=== PATIENT | female | born 1995 | race Caucasian/White ===

== ENCOUNTER 2016-05-02 08:11 | Emergency (ER) | payer OTHER ==
[~2016-05-02] VITALS: Ht 152.4 cm; Wt 75.0 kg
[~2016-05-02 08:11] MED LIST: ESCI10TA52 PO
[2016-05-02 08:15] VITALS: BP 120/78; PULSE 108; RESP 14; O2SAT 96
--- NOTE | 2016-05-02 08:52 | ED.REPORT ---
HPI-NVD Date of Service May 02, 2016 ED Provider: The patient is a 20 year old female with history of asthma, anxiety, and depression, who presents to the emergency department complaining of abdominal pain that has been ongoing over the last 2 months. She initially noticed mucousy /bloody stool and diarrhea. This has continued and she has also experienced intermittent episodes of nausea and vomiting. Over the last few days her symptoms have worsened and she has noticed chills. She is having about 10-15 episodes of diarrhea per day and wakes from sleep to have a bowel movement. She notices blood in her stools everyday, usually towards the end of the day. She has lost about 10 pound since onset. She has tried Pepto Bismol with no relief. She was seen by her doctor yesterday who was concerned that she was dehydrated. She has not had any stool studies since this started. Her mother mentions that the patient had similar mucousy stools when she was a few years ago. The patient denies any chance she is . A few weeks ago she had a cold and experienced a fever during that time but no other times over the last 2 months. She was on antibiotics for the cold for about 4-5 days. She smokes tobacco. She drinks alcohol about once per month. She does not use any illicit drugs. No previous abdominal surgeries. Nursing Notes Stated Complaint: POSSIBLE DEHYDRATION Chief Complaint: Female Abdominal Pain Nursing Notes Reviewed: Yes Allergies: Coded Allergies: codeine (Verified Allergy, Unknown, Nausea, 08/26/15) Scheduled Escitalopram Oxalate (Escitalopram Oxalate) 10 Mg Tablet 10 MG PO DAILY General Time Seen by MD: 08:51 Chief Complaint Abd pain, cramping Hx Obtained From: Patient Arrived By: Walk-in Onset Occurred: More than a week ago... (2 months) Symptom Duration: Intermittent Diarrhea: Diarrhea with mucous, Diarrhea > 10 episodes (per day) Location: : Diffuse Quality: Cramping, Painful Severity: Current: Moderate Severity: Maximum: Severe Pertinent Negative: Pt denies other symptoms Recent Healthcare: No recent hospitalization, Recent doctor visit Similar Sx Previous: Yes (for the last 2 months) Past Medical History Past Medical History 1. Asthma. 2. Psoriasis. 3. Depression 4. Anxiety Past Surgical History None. Family History Noncontributory Smoking History Current Every Day Smoker Social History The patient lives with her father. Her parents are . She has a 2 year old daughter. Alcohol Use: "Social" (once per month) Drug Use: Denies drug use Other Social History: Good social support, Lives with parents, Lives with children, Local resident Ambulatory Status Independent Review of Systems Review of Systems Note: +bloody stools Constitutional: Reports: Chills, Recent wt loss, Denies: Fever GI: Reports: Abdominal pain, Anorexia, Diarrhea, Mucousy stool, Nausea, Vomiting Complete sys rev & neg: except as marked. Respiratory: Denies: Non-productive cough, Shortness of breath Cardiovascular: Denies: Chest pain Female: Denies: Physical Exam Initial Vital Signs Vital Signs (First) Date Time Temp Pulse Resp B/P Pulse Ox O2 Delivery O2 Flow Rate FiO2 05/02/16 08:15 35.6 108 14 120/78 96 Room Air Initial VS: Reviewed Head / Eyes: Atraumatic, Normocephalic, PERRL ENT: Mucous membranes moist, Conjunctiva normal, No scleral icterus Neck: Supple, Non-tender, Full range of motion Respiratory: Breath sounds normal, Clear to auscultation, No respiratory distress Cardiovascular: Regular rate & rhythm, Heart sounds normal, Intact distal pulses Back: No CVA tenderness Lymphatic: No lymphadenopathy Extremities: Vascular intact, Neuro intact, No swelling, No tenderness Skin: Warm, Dry, No cyanosis Neurologic: Alert, Oriented, Nonfocal Psychiatric: Mood/affect normal, Behavior normal, Normal thought content General/Constitutional: Awake, Alert, No acute distress, Cooperative Abdomen: Soft, No guarding, No rebound, BS normoactive, No distention, No hernia, No palpable mass, No pulsatile mass Diffuse abdominal pain with no guarding or mass. The worst spot is in the hypogastrium. Interpretation & Diagnostics Lab Results Interpretation Result Diagram: 05/02/16 0858 05/02/16 0858 Test 05/02/16 08:58 05/02/16 09:38 White Blood Count 11.5th/mm3 (3.8-10.1) Red Blood Count 4.88mil/mm3 (3.90-5.20) Hemoglobin 14.2g/dL (12.0-15.6) Hematocrit 41.5% (35.0-46.0) Mean Corpuscular Volume 85.0fL (81-100) Mean Corpuscular Hemoglobin 29.1pg (27.0-35.0) Mean Corpuscular Hemoglobin Concent 34.2% (32.0-37.0) Red Cell Distribution Width 13.8% (12.3-15.4) Platelet Count 208bil/L (150-400) Neutrophils (%) (Auto) 64.8% (40-74) Lymphocytes (%) (Auto) 17.8% (14-46) Monocytes (%) (Auto) 12.0% (4-12) Eosinophils (%) (Auto) 4.6% (0-5) Basophils (%) (Auto) 0.5% (0-3) Sodium Level 138mEq/L (134-144) Potassium Level 3.5mEq/L (3.5-5.2) Chloride Level 101mEq/L (97-108) Carbon Dioxide Level 23mmol/L (18-29) Blood Urea Nitrogen 6mg/dL (6-20) Creatinine 0.59mg/dL (0.57-1.00) Estimat Glomerular Filtration Rate 184mL/min (>59) Glucose Level 83mg/dL (60-99) Calcium Level 8.7mg/dL (8.5-10.1) Magnesium Level 2.0mg/dL (1.6-2.6) Total Bilirubin 0.4mg/dL (0.0-1.2) Aspartate Amino Transf (AST/SGOT) 23U/L (0-50) Alanine Aminotransferase (ALT/SGPT) 11U/L (0-32) Alkaline Phosphatase 46U/L (25-150) Total Protein 7.5g/dL (6.4-8.4) Albumin 4.0g/dL (3.4-5.0) Lipase 20U/L (13-60) Hold Lin Top Tube Received (Received) Urine Color Yellow (YELLOW) Urine Appearance Hazy (CLEAR,HAZY) Urine pH 7.0 (5.0-8.0) Urine Specific [place] 1.010 (1.003-1.035) Urine Protein Negativemg/dL (NEG,TRACE) Urine Glucose (UA) Negativemg/dL (NEGATIVE) Urine Ketones 15mg/dL (NEGATIVE) Urine Occult Blood Moderate (NEGATIVE) Urine Nitrite Negative (NEGATIVE) Urine Bilirubin Negative (NEGATIVE) Urine Urobilinogen Normalmg/dL (NORMAL) Urine Leukocyte Esterase Large (NEGATIVE) Urine RBC 0-2/hpf (0-2) Urine WBC 11-50/hpf (0-5) Urine Epithelial Cells Occasional/hpf (NONE-MOD) Urine Crystals None seen (NONE SEEN) Urine Bacteria Many/hpf (NONE-FEW) Urine Hyaline Casts None/lpf (NONE) Urine Granular Casts None seen (NONE SEEN) Urine Waxy Casts None seen (NONE SEEN) Urine Red Blood Cell Casts None seen (NONE SEEN) Urine White Blood Cell Casts None seen (NONE SEEN) Urine Mucus None seen (None Seen) Urine Trichomonas None seen (NONE SEEN) Urine Yeast None (NONE SEEN) Urinalysis Comment None Urine Culture Reflexed Indicated X-Ray Abdominal Interpretation IMPRESSION: 1. Probable bilateral renal stones. 2. Paucity of bowel gas. Dilated, fluid-filled loops of bowel cannot be excluded. Dictated by: Kati Perea MD, PhD on 05/02/2016 at 9:57 Interpretation / Wet Read by: Interpret - Radiologist Re-Eval/Medical Decision Source of Hx: Old records, Family Re-Evaluation/Progress #1: Time of Eval: 09:07 Re-Evaluation/Progress Note: Discussed plan for workup. Re-Evaluation/Progress #2: Time of Eval: 11:00 Re-Evaluation/Progress Note: Rechecked the patient. She is resting comfortably. She has not had any diarrhea since the Imodium. Still awaiting stool culture results. Re-Evaluation/Progress #3: Re-Evaluation/Progress Note: Discussed results, diagnosis, and plan for discharge. All questions were addressed. Counseled Regarding: Diagnosis, Lab results, Need for follow-up, When/why to return to ED Discharge & Departure Impression: Primary Impression: Chronic diarrhea Disposition: Home Discharge Condition All VS Reviewed: Yes Condition: Stable Patient Instructions: Chronic Diarrhea (ED) Additional Instructions: Thank you for entrusting us with your care today. We have scheduled you an appointment with Khloe Mcgrath PA-C on SaturdayMay 09 with a check-in time of 7:45 AM. I recommend trying over the counter Imodium (loperamide). Take 2 the first time. Then every time you have an episode of diarrhea you can take another one. Do not take more than 8 in 24 hours. If this does not help after a few days you can stop taking it. Drink fluids as tolerated. Use ondansetron as needed for nausea and Tylenol as needed for pain. Please return to the emergency department if you develop increased abdominal pain, uncontrollable vomiting, fever, chills, lightheadedness, dizziness, or any other new or concerning symptoms. Referrals: Chava Cheng MD (PCP) Khloe Mcgrath PA-C Other Scribe Attestation Portions of this note were transcribed by Sudha Salinas. I, Dr. Aponte personally performed the history, physical exam and medical decision-making; I reviewed and confirmed the accuracy of the information in the transcribed note. Signed by: Emerson Amaya, 05/02/3016 and 1200. copies to: Chava Cheng MD; Khloe Mcgrath PA-C, Kirk H MD May 02, 2016 08:52 Sudha Salinas May 02, 2016 09:08
[2016-05-02] MEDS ORDERED: 0.9% Sodium Chloride 1,000 ML IV ONE ×2 (09:06→09:10)
[2016-05-02] MEDS ORDERED: Ondansetron 2 mg/mL 2 mL Inj IVPUSH PRN (09:10)
[2016-05-02] MEDS ORDERED: Acetaminophen IV 1,000 MG in IV Premix 1 EACH IV ONE (09:10)
[2016-05-02 09:18] LABS: BASOPHILS % (AUTO) 0.5 % (0-3); EOSINOPHILS % (AUTO) 4.6 % (0-5); Mean Corpuscular Hemoglobin 29.1 pg (27.0-35.0); NEUTROPHILS % (AUTO) 64.8 % (40-74); Platelet Count 208 bil/L (150-400)
--- NOTE | 2016-05-02 10:00 | DRSVH ---
PROCEDURE: X-RAY ACUTE ABDOMINAL SERIES ([id number]) INDICATIONS: vomiting TECHNIQUE: One view chest and two views of the abdomen were acquired. COMPARISON: [facility], CR, XR ABDOMEN ACUTE SERIES, 04/12/2016, 6:52 PM. FINDINGS: Surgical changes and devices: None. Chest: Lungs are clear. Heart size is normal. No pleural effusions. No pneumoperitoneum. Abdomen: There is a near complete absence of gas in the large and small bowel loops. Gas is noted in the stomach. Calcific densities project over the inferior poles of the kidneys bilaterally. Visualize d solid organ contours appear normal. Bones: No suspicious bony lesions. IMPRESSION: 1. Probable bilateral renal stones. 2. Paucity of bowel gas. Dilated, fluid-filled loops of bowel cannot be excluded. Dictated by: Kati Perea MD, PhD on 05/02/2016 at 9:57 Approved by: Kati Perea MD, PhD on 05/02/2016 at 9:58
[2016-05-02 10:05] LABS: APPEARANCE,URINE HAZY (CLEAR,HAZY); COLOR,URINE YELLOW (YELLOW)
[2016-05-02 10:06] LABS: OCCULT BLOOD,URINE MODERATE (NEGATIVE); UROBILINOGEN,URINE NORMAL (NORMAL)
[2016-05-02] MEDS ORDERED: ONDA4TAB9 PO (12:13)
[2016-05-15] MEDS ORDERED: MOME13HF4 IH (15:16)
[2016-05-15] MEDS ORDERED: NITR100 PO (15:16)
[2016-05-15] MEDS ORDERED: ALBU2.5V4 INHALATION (15:16)
[2016-05-15] MEDS ORDERED: ALBU18HF INH (15:16)
== END 2016-05-02 12:20 | disposition home or self-care (01) ==
LOC: SED 08:11
DX: K52.9 Noninfective gastroenteritis and colitis, unspecified (principal); J45.909 Unspecified asthma, uncomplicated; F17.200 Nicotine dependence, unspecified, uncomplicated; Z88.5 Allergy status to narcotic agent
CPT/HCPCS: 36415; 74022; 80053; 81000; 81025; 83690; 83735; 85025; 87086; 87088; 87507; 96361; 96374; 96375; 99285; J0131; J2405; J7030

== ENCOUNTER 2016-05-16 07:18 | Day surgery (SDC) | payer OTHER ==
[~2016-05-16] VITALS: Ht 152.4 cm; Wt 72.6 kg
[~2016-05-16 07:18] MED LIST changes: +ALBU18HF INH; +ALBU2.5V4 INHALATION; +MOME13HF4 IH; +NITR100 PO; +ONDA4TAB9 PO; +Sodium Chloride LOK Flush 10 mL Syringe IV PRN; +fentaNYL-PF 50 mCg/mL 2 mL Inj IVPUSH PRN
[2016-05-16 07:51] VITALS: BP 111/71; PULSE 71; RESP 16; O2SAT 96
[2016-05-16] MEDS: 0.9% Sodium Chloride 1,000 ML IV SCH ×2 (08:00→08:55)
[2016-05-16 09:06] VITALS: BP 93/76; PULSE 56; RESP 15; O2SAT 96
[2016-05-16 09:13] VITALS: BP 102/48; PULSE 53; RESP 15; O2SAT 99
[2016-05-16 09:23] VITALS: BP 91/61; PULSE 52; RESP 15; O2SAT 99
--- NOTE | 2016-05-16 09:24 | ENDO ---
[address] [address] ENDOSCOPY PROCEDURE PATIENT: THAO PORTER : 1995 MR#: [id number] ADMIT: 05/16/2016 JOB ID: [id number] DATE: 05/16/2016 TYPE OF OPERATION: 1. Esophagogastroduodenoscopy with biopsy. 2. Colonoscopy with biopsy. PREOPERATIVE DIAGNOSIS: Nausea, vomiting, diarrhea, abdominal pain. POSTOPERATIVE DIAGNOSIS(ES): 1. Normal upper endoscopy, status post biopsy. 2. Loss of architecture vascularity with ulcer seen in the rectum and mild erythema seen throughout the entire colon all the way up to the ascending colon, status post biopsy. Normal terminal ileum. ANESTHESIA: 1. Fentanyl 150 mcg. 2. Versed 7 mg IV administered. COMPLICATIONS: None. BLOOD LOSS: Minimal. DESCRIPTION OF PROCEDURE: After risks and benefits were explained to the patient, informed consent was obtained. After anesthesia administered, upper endoscope was inserted into the mouth, intubated through the esophagus, stomach, second portion of duodenum. Mucosa carefully examined. After procedure was done, the scope withdrawn and the procedure was terminated. A colonoscope was then inserted from the rectum to the terminal ileum. Mucosa carefully examined. Prep of the patient was excellent. After procedure was done, the scope withdrawn and procedure terminated. FINDINGS: Upon inspection of the esophagus, the esophagus was normal without masses, ulcers, lesions. Z-line located at 35 cm from incisors. Upon entering the stomach, the stomach was also normal without masses, ulcers, or lesions. Retroflexion was normal. Duodenal bulb, first and second portion were normal. Biopsies taken from the duodenum, antrum, body and distal esophagus. Upon inspection of the anus, no masses, hemorrhoids, ulcers, or fissures that were seen. Throughout the entire examination, there was loss of architecture and vascularity seen with ulcers in the rectum and mild erythema seen throughout the entire colon all the way up to the ascending colon, which was biopsied. Intubation of the terminal ileum looked normal. Biopsies taken of the terminal ileum, ascending colon, random colon and the rectum. Retroflexion was not performed given the fact the patient had marked erythema and suspicious for ulcerative colitis in the rectum. IMPRESSIONS: 1. Normal upper endoscopy, status post biopsy. 2. Loss of architecture and vascularity with ulcers seen in the rectum and erythema seen throughout the entire colon to the ascending colon, status post biopsy. RECOMMENDATIONS: 1. Followup in GI clinic in one month. 2. Await biopsy results. 3. Start Lialda 2.4 g by mouth once a day. 4. Start Rowasa enemas 6 g per rectal q.h.s. 5. Start 9.9 mg by mouth once a day.
--- NOTE | 2016-05-17 14:35 | PATH ---
SURGICAL PATHOLOGY Attending Physician:Everett Angel MD CASE STATUS: Signed Out PATIENT NAME: THAO PORTER PID: [id number] : 1995 DATE COLLECTED:05/16/2016 16:47 SPECIMEN: 1: Duodenum, Biopsy 2: Stomach, Antrum, Biopsy 3: Gastric, Biopsy 4: Esophagus, Biopsy 5: Ileum, Biopsy 6: Colon, Biopsy 7: Rectum, Biopsy 8: Colon, Biopsy CLINICAL HISTORY: 1.DUODENAL BXS 2.ANTRUM BXS 3.GASTRIC BODY BXS 4.DISTAL ESOPHAGUS BXS 5.TI BXS 6.RANDOM COLON BXS 7.RECTAL BXS 8.ASCENDING COLON BXS FINAL DIAGNOSIS: 1.DUODENAL BIOPSIES: DUODENAL MUCOSA WITH NO DIAGNOSTIC ALTERATIONS. Negative for inflammation, sprue, dysplasia, and malignancy. 2.ANTRUM BIOPSIES: ANTRAL MUCOSA WITH NO DIAGNOSTIC ALTERATIONS. Negative for Helicobacter organisms. Negative for intestinal metaplasia. Negative for dysplasia and malignancy. 3.GASTRIC BODY BIOPSIES: BODY-TYPE MUCOSA WITH NO DIAGNOSTIC ALTERATIONS. Negative for Helicobacter organisms. Negative for intestinal metaplasia. Negative for dysplasia and malignancy. 4.DISTAL ESOPHAGUS BIOPSIES: SQUAMOUS MUCOSA WITH NO DIAGNOSTIC ALTERATIONS. Negative for intestinal/Hook' s metaplasia. Negative for dysplasia and malignancy.\\ 5.TI BIOPSIES: NORMAL TERMINAL ILEUM MUCOSA. No inflammation identified. Negative for dysplasia and malignancy. 6.RANDOM COLON BIOPSIES: MILD CHRONIC ACTIVE COLITIS, SEE COMMENT. Negative for dysplasia and malignancy. 7.RECTAL BIOPSIES: MILD CHRONIC ACTIVE COLITIS, SEE COMMENT. Negative for dysplasia and malignancy. 8.ASCENDING COLON BIOPSIES: MILD CHRONIC ACTIVE COLITIS, SEE COMMENT. ICD10 CODE K52.9 NOTE: All of the colon biopsies (specimens 6, 7, and 8) show an inflammatory process characterized by hypercellularity of the lamina propria (mononuclear cells, neutrophils, eosinophils), cryptitis, and scattered crypt distortion. Cryptitis and crypt distortion is most prominent in the biopsies labeled from the ascending colon. No granulomas, parasites, or viral inclusions are seen. This mildly active colitis pattern, with associated focal distortion of crypt architecture, could be due to inflammatory bowel disease (favor ulcerative colitis) if infection and medication-related mucosal injury is excluded. Clinical and endoscopic correlation is needed for definitive diagnosis. As part of a routine vendor quality supervisor, Dr. Cindy Ding has also reviewed this case and agrees with the diagnosis. GROSS DESCRIPTION: The specimen is received in eight formalin filled containers labeled with the patient's name. 1). The specimen is sublabeled "duodenal" and consists of 3 portions of tissue which aggregate to 0.3 x 0.3 x 0.2 CM. The specimen is entirely submitted in cassette 1A. 2). The specimen is sublabeled "antrum" and consists of 3 portions of tissue which aggregate to 0.3 x 0.3 x 0.2 CM. The specimen is entirely submitted in cassette 2A. 3). The specimen is sublabeled "gastric body" and consists of 3 portions of tissue which aggregate to 0.3 x 0.3 x 0.2 CM. The specimen is entirely submitted in cassette 3A. 4). The specimen is sublabeled "distal esophagus" and consists of 3 tiny portions of tissue which aggregate to 0.2 x 0.2 x 0.2 CM. The specimen is entirely submitted in cassette 4A. 5). The specimen is sublabeled "TI" and consists of 2 portions of tissue which aggregate to 0.3 x 0.3 x 0.2 CM. The specimen is entirely submitted in cassette 5A. 6). The specimen is sublabeled "random colon" and consists of 2 portions of tissue which aggregate to 0.3 x 0.3 x 0.3 CM. The specimen is entirely submitted in cassette 6A. 7). The specimen is sublabeled "rectal" and consists of 3 portions of tissue which aggregate to 0.5 x 0.4 x 0.3 CM. The specimen is entirely submitted in cassette 7A. 8). The specimen is sublabeled "ascending colon" and consists of 2 portions of tissue which aggregate to 0.3 x 0.3 x 0.2 CM. The specimen is entirely submitted in cassette 8A. 05/16/2016 [facility] MICRO DESCRIPTION: See diagnosis. ICD-9 CODES: CPT CODES: 1: 42517 2: 35509 3: 91587 4: 21271 5: 58387 6: 91911 7: 58098 8: 86541 Electronically Signed Out Malinda Irby MD [facility] [place] [address] Technical component performed at [facility], [address], [place], [address]
== END 2016-05-16 23:59 | disposition home or self-care (01) ==
LOC: END 07:18
PROVIDERS: ATTEND Internal Medicine Gastroenterology
DX: K52.9 Noninfective gastroenteritis and colitis, unspecified (principal); R11.2 Nausea with vomiting, unspecified; R10.9 Unspecified abdominal pain; R63.4 Abnormal weight loss; J45.909 Unspecified asthma, uncomplicated; Z79.51 Long term (current) use of inhaled steroids
CPT/HCPCS: 43239; 45380; 99153; G0500; J2250; J3010; J7030